=== PATIENT | male | born 1970 | race African-American/Black ===

== ENCOUNTER 2023-02-20 20:57 | Emergency (ER) | payer SELFPAY ==
[~2023-02-20] VITALS: Ht 180.3 cm; Wt 133.9 kg
[2023-02-21] MEDS ORDERED: AUGMENTIN 875 MG TAB PO ONE (01:20)
[2023-02-21] MEDS ORDERED: KETOROLAC TROMETHAMINE 10 MG TAB PO ONE (01:20)
[2023-02-21] MEDS ORDERED: KETO10TAB PO (01:31)
[2023-02-21] MEDS ORDERED: AMOX875T2 PO (01:31)
[2023-02-21 01:55] VITALS: BP 151/83; TEMP 98.4; O2SAT 96
== END 2023-02-21 01:56 | disposition home or self-care (01) ==
LOC: M ED 20:57
DX: K04.7 Periapical abscess without sinus (principal); F17.210 Nicotine dependence, cigarettes, uncomplicated; F10.10 Alcohol abuse, uncomplicated; F12.90 Cannabis use, unspecified, uncomplicated; Z79.2 Long term (current) use of antibiotics

== ENCOUNTER 2023-08-15 13:52 | Emergency (ER) | payer OTHER, SELFPAY ==
[~2023-08-15] VITALS: Ht 180.3 cm; Wt 131.0 kg
[~2023-08-15 13:52] MED LIST: AMOX875T2 PO; KETO10TAB PO
[2023-08-15] MEDS ORDERED: IBUP200C25 PO (14:10)
[2023-08-15] MEDS: cefTRIAXone SOD 2 GM in D5W MINI-BAG PLUS 50 ML IV ONE (14:49)
[2023-08-15] MEDS: KETOROLAC 30 MG/ML 1ML VIAL IV ONE (14:50)
[2023-08-15 15:12] LABS: BASO % 0.2 % (0.0-1.0); EOS # 0.1 10^3/uL (0.0-0.5); HEMATOCRIT 43.9 % (42.0-52.0); HEMOGLOBIN 14.4 g/dl (13.5-17.5); LYMPH # 2.4 10^3/uL (1.5-5.0); LYMPH % 20.3 % (24.0-44.0); MEAN CORPUSCULAR HGB CONC 32.8 g/dl (32.0-36.5); MEAN CORPUSCULAR VOLUME 88.3 fl (80.0-96.0); MONO # 0.9 10^3/uL (0.0-0.8); MONO % 7.4 % (2.0-8.0); NEUTROPHILS # 8.4 10^3/uL (1.5-8.5); NEUTROPHILS % 70.6 % (36.0-66.0); PLATELET COUNT, AUTOMATED 156 10^3/uL (150-450); RED BLOOD COUNT 4.97 10^6/uL (4.30-6.10); WHITE BLOOD COUNT 11.8 10^3/uL (4.0-10.0)
[2023-08-15 15:22] LABS: ERYTHROCYTE SEDIMENTATION RATE 86 mm/hr (0-20)
[2023-08-15 15:36] LABS: BLOOD UREA NITROGEN 13 MG/DL (9-23); CALCIUM LEVEL 8.6 MG/DL (8.5-10.1); CARBON DIOXIDE LEVEL 25 MMOL/L (20-31); CHLORIDE LEVEL 102 MMOL/L (98-107); CREATININE FOR GFR 0.75 MG/DL (0.70-1.30); GLOMERULAR FILTRATION RATE > 60.0 (>56); GLUCOSE, FASTING 189 MG/DL (60-100); POTASSIUM SERUM 4.2 MMOL/L (3.5-5.1); SODIUM LEVEL 133 MMOL/L (136-145)
[2023-08-15] MEDS ORDERED: CEPH500C PO (15:51)
[2023-08-15 16:15] VITALS: BP 135/80; TEMP 96.7; O2SAT 95
== END 2023-08-15 16:17 | disposition home or self-care (01) ==
LOC: M ED 13:52
DX: S61.431A Puncture wound without foreign body of right hand, initial encounter (principal); Y92.9 Unspecified place or not applicable; Y93.9 Activity, unspecified; Y99.0 Civilian activity done for income or pay; L03.113 Cellulitis of right upper limb; F17.210 Nicotine dependence, cigarettes, uncomplicated; F10.10 Alcohol abuse, uncomplicated; Z79.1 Long term (current) use of non-steroidal anti-inflammatories (NSAID); Z79.2 Long term (current) use of antibiotics
CPT/HCPCS: 73130; 80048; 85025; 85652; 86140; 96365; 96374; 99283; J0696; J1885